=== PATIENT | female | born 1995 | race Caucasian/White ===

== ENCOUNTER 2016-12-17 12:30 | Emergency (ER) | payer OTHER ==
[~2016-12-17] VITALS: Ht 157.5 cm; Wt 60.0 kg
[2016-12-17 12:37] VITALS: Ht 157.5 cm; Wt 60.0 kg
[2016-12-17] MEDS ORDERED: LIDOCAINE 1% (MDV) 20 ML INJ SC ONE (14:30)
[2016-12-17] MEDS ORDERED: ACETAMINOPHEN 325 MG TAB PO ONE ×2 (14:30→15:30)
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
[2016-12-17] MEDS ORDERED: ACET500C5 PO (15:35)
[2016-12-17] MEDS ORDERED: DIPHTH/TET/ACEL PERTUSS (ADULT) 0.5 ML VIAL IM* ONE (16:00)
== END 2016-12-17 15:50 | disposition home or self-care (01) ==
LOC: FTE 12:30
DX: S01.111A Laceration without foreign body of right eyelid and periocular area, initial encounter (principal); Y04.8XXA Assault by other bodily force, initial encounter; Z23 Encounter for immunization
CPT/HCPCS: 12013; 90471; 90715; Z7502; Z7610